=== PATIENT | male | born 1995 | race African-American/Black ===

== ENCOUNTER 2021-05-13 10:38 | Emergency (ER) | payer MEDICAID, OTHER ==
--- NOTE | 2021-05-13 10:46 | EDM.PDOC ---
ED HPI GENERAL MEDICAL PROBLEM - General Chief Complaint: General Stated Complaint: BODY ACHES, COLD CHILLS & SWEATS,DIZZY, FATIGUE Time Seen by Provider: 05/13/21 10:41 Source of Information: Reports: Patient History Limitations: Reports: No Limitations - History of Present Illness INITIAL COMMENTS - FREE TEXT/NARRATIVE: 26-year-old male no past medical history presents for feeling unwell for the last 4 days. Patient notes headache, back pain, body aches, chills, night sweats, subjective fevers, nausea, diarrhea. He denies any sore throat, cough, loss of taste and smell. He has mild abdominal cramping pain. He denies any dysuria or hematuria. He has not had a COVID-19 vaccination. back Pain Score (Numeric/FACES): 7 - Related Data Allergies Allergy/AdvReac Type Severity Reaction Status Date / Time No Known Allergies Allergy Verified 05/13/21 10:52 Home Meds: Home Meds . [No Known Home Meds] 05/13/21 [History] ED ROS GENERAL - Review of Systems Review Of Systems: Comprehensive ROS is negative, except as noted in HPI. ED EXAM, GENERAL - Physical Exam Exam: See Below Exam Limited By: No Limitations General Appearance: Alert, WD/WN, No Apparent Distress Ears: Hearing Grossly Normal Throat/Mouth: Normal Inspection, Normal Lips, Normal Gums, Normal Oropharynx, Normal Voice, No Airway Compromise Head: Atraumatic, Normocephalic Neck: Normal Inspection, Supple, Full Range of Motion Respiratory/Chest: No Respiratory Distress, Lungs Clear, Normal Breath Sounds, No Accessory Muscle Use Cardiovascular: Normal Peripheral Pulses, Regular Rate, Rhythm GI/Abdominal: Soft, Non-Tender Extremities: Normal Inspection Neurological: Alert, Normal Cognition, Normal Gait Psychiatric: Normal Affect, Normal Mood Skin Exam: Warm, Dry, Intact, Normal Color Course - Vital Signs Last Recorded V/S: Last Vital Signs Temp 96.1 F L 05/13/21 10:52 Pulse 88 05/13/21 10:52 Resp 20 05/13/21 10:52 BP 155/93 H 05/13/21 10:52 Pulse Ox 97 05/13/21 10:52 - Orders/Labs/Meds Orders: Active Orders 24 hr Category Date Time Status Sodium Chloride 0.9% [Saline Flush] Med 05/13/21 11:10 Active 10 ml FLUSH ASDIRECTED PRN Sodium Chloride 0.9% [Saline Flush] Med 05/13/21 11:10 Active 2.5 ml FLUSH ASDIRECTED PRN Saline Lock Insert [OM.PC] Stat Oth 05/13/21 11:10 Ordered Medication Orders Sodium Chloride (Sodium Chloride 0.9% 10 Ml Syringe) 10 ml FLUSH ASDIRECTED PRN PRN Reason: Keep Vein Open Last Admin: 05/13/21 11:38 Dose: 10 ml Documented by: CANDIS Sodium Chloride (Sodium Chloride 0.9% 2.5 Ml Syringe) 2.5 ml FLUSH ASDIRECTED PRN PRN Reason: Keep Vein Open Last Admin: 05/13/21 11:39 Dose: 2.5 ml Documented by: CANDIS Labs: Laboratory Tests 05/13/21 05/13/21 05/13/21 Range/Units 11:45 11:45 11:55 WBC 3.21 L (4.0-11.0) K/uL RBC 4.94 (4.50-5.90) M/uL Hgb 15.8 (13.0-17.0) g/dL Hct 45.6 (38.0-50.0) % MCV 92.3 (80.0-98.0) fL MCH 32.0 (27.0-32.0) pg MCHC 34.6 (31.0-37.0) g/dL RDW Std Deviation 44.6 (28.0-62.0) fl RDW Coeff of Reema 13 (11.0-15.0) % Plt Count 234 (150-400) K/uL MPV 10.30 (7.40-12.00) fL Neut % (Auto) 55.5 (48.0-80.0) % Lymph % (Auto) 34.9 (16.0-40.0) % [place] % (Auto) 9.0 (0.0-15.0) % Eos % (Auto) 0.3 (0.0-7.0) % Baso % (Auto) 0.3 (0.0-1.5) % Neut # (Auto) 1.8 (1.4-5.7) K/uL Lymph # (Auto) 1.1 (0.6-2.4) K/uL [place] # (Auto) 0.3 (0.0-0.8) K/uL Eos # (Auto) 0.0 (0.0-0.7) K/uL Baso # (Auto) 0.0 (0.0-0.1) K/uL Nucleated RBC % 0.0 /100WBC Nucleated RBCs # 0 K/uL Sodium 135 L (136-148) mmol/L Potassium 3.7 (3.5-5.1) mmol/L Chloride 102 (98-107) mmol/L Carbon Dioxide 24.9 (21.0-32.0) mmol/L BUN 13 (7.0-18.0) mg/dL Creatinine 1.3 (0.8-1.3) mg/dL Est Cr Clr Drug Dosing 100.12 mL/min Estimated GFR (MDRD) > 60.0 ml/min Glucose 119 H (74-106) mg/dL Calcium 8.5 (8.5-10.1) mg/dL Total Bilirubin 0.3 (0.2-1.0) mg/dL AST 21 (15-37) IU/L ALT 24 (14-63) IU/L Alkaline Phosphatase 48 (46-116) U/L C-Reactive Protein 2.90 H (0.00-0.90) mg/dL Total Protein 7.8 (6.4-8.2) g/dL Albumin 3.8 (3.4-5.0) g/dL Globulin 4.0 (2.6-4.0) g/dL Albumin/Globulin Ratio 0.9 (0.9-1.6) SARS-CoV-2 RNA (ALYSIA) POSITIVE H (NEGATIVE) Meds: Medications Generic Name Dose Route Start Last Admin Trade Name Freq PRN Reason Stop Dose Admin Sodium Chloride 10 ml 05/13/21 11:10 05/13/21 11:38 Sodium Chloride 0.9% 10 Ml Syringe FLUSH 10 ml ASDIRECTED PRN Administration Keep Vein Open Sodium Chloride 2.5 ml 05/13/21 11:10 05/13/21 11:39 Sodium Chloride 0.9% 2.5 Ml Syringe FLUSH 2.5 ml ASDIRECTED PRN Administration Keep Vein Open Discontinued Medications Generic Name Dose Route Start Last Admin Trade Name Freq PRN Reason Stop Dose Admin Acetaminophen 1,000 mg 05/13/21 11:10 05/13/21 11:39 Acetaminophen 500 Mg Tab PO 05/13/21 11:11 1,000 mg ONETIME ONE Administration Diphenhydramine HCl 25 mg 05/13/21 11:10 05/13/21 11:38 Diphenhydramine 50 Mg/Ml Sdv IVPUSH 05/13/21 11:11 25 mg ONETIME ONE Administration Sodium Chloride 1,000 mls @ 999 mls/hr 05/13/21 11:10 05/13/21 11:38 Normal Saline IV 05/13/21 12:10 999 mls/hr .Bolus ONE Administration Ketorolac Tromethamine 15 mg 05/13/21 11:10 05/13/21 11:38 Ketorolac 15 Mg/Ml Sdv IVPUSH 05/13/21 11:11 15 mg STAT STA Administration Metoclopramide HCl 10 mg 05/13/21 11:10 05/13/21 11:38 Metoclopramide 10 Mg/2 Ml Sdv IVPUSH 05/13/21 11:11 10 mg ONETIME ONE Administration - Re-Assessments/Exams Free Text/Narrative Re-Assessment/Exam: 05/13/21 11:12 Patients presents with several nonspecific symptoms suggestive of possible viral illness. Will get basic labs. Will give IV fluid bolus and symptomatic relief medications while working up. 05/13/21 12:59 Patient's labs are grossly unremarkable. His COVID-19 test is positive. Will discharge patient with Covid return precautions. Departure - Departure Time of Disposition: 12:59 Disposition: Home, Self-Care 01 Condition: Good Clinical Impression: COVID-19 - Discharge Information Instructions: COVID-19 Frequently Asked Questions, COVID-19 Vaccine Information Referrals: PCP,None [Primary Care Provider] - Forms: ED Department Discharge Additional Instructions: Your COVID-19 test is positive. COVID-19 symptoms typically last for 10-14 days in otherwise young, healthy people. If you develop difficulty breathing or chest pain, you should come back to the Emergency Department for reassessment. You need to self-isolate until cleared by the state (they will call you). Do not go out into public!! This disease is VERY contagious and you will get other people sick. I have seen many, many older people and some young people from COVID, and you should not want to be responsible for the illness or of anyone. When you are cleared by the state, you should consider getting a COVID-19 vaccination as this is the best way to protect yourself and others from COVID infection. Information is provided below. The best way to protect yourself and others from COVID-19 is to take one of the three safe and effective vaccines that have been proven to substantially reduce risk of both infection and severe illness. [facility] is currently offering COVID vaccinations for anyone age 18 and older. To schedule an appointment call [phone]. Or, to be contacted by our clinics about scheduling your vaccine online, please go to [email or web address] The following information is given to patients seen in the emergency department who are being discharged to home. This information is to outline your options for follow-up care. We provide all patients seen in our emergency department with a follow-up referral. The need for follow-up, as well as the timing and circumstances, are variable depending upon the specifics of your emergency department visit. If you don't have a primary care physician on staff, we will provide you with a referral. We always advise you to contact your personal physician following an emergency department visit to inform them of the circumstance of the visit and for follow-up with them and/or the need for any referrals to a consulting speci alist. The emergency department will also refer you to a specialist when appropriate. This referral assures that you have the opportunity for follow-up care with a specialist. All of these measure are taken in an effort to provide you with optimal care, which includes your follow-up. Under all circumstances we always encourage you to contact your private physician who remains a resource for coordinating your care. When calling for follow-up care, please make the office aware that this follow-up is from your recent emergency room visit. If for any reason you are refused follow-up, please contact the [facility] Emergency Department at and asked to speak to the emergency department charge nurse. Please follow up with your primary care physician. If you do not have a primary care physician, see below: [facility] [address] [place], [place] [id number] [facility] [address] [place] [address] Sepsis Event Note (ED) - Focused Exam Vital Signs: Vital Signs Temp Pulse Resp BP Pulse Ox 05/13/21 10:52 96.1 F L 88 20 155/93 H 97 - My Orders Last 24 Hours: My Active Orders 05/13/21 11:10 Sodium Chloride 0.9% [Saline Flush] 10 ml FLUSH ASDIRECTED PRN Sodium Chloride 0.9% [Saline Flush] 2.5 ml FLUSH ASDIRECTED PRN Saline Lock Insert [OM.PC] Stat - Assessment/Plan Last 24 Hours: My Active Orders 05/13/21 11:10 Sodium Chloride 0.9% [Saline Flush] 10 ml FLUSH ASDIRECTED PRN Sodium Chloride 0.9% [Saline Flush] 2.5 ml FLUSH ASDIRECTED PRN Saline Lock Insert [OM.PC] Stat
[2021-05-13] MEDS ORDERED: Sodium Chloride 0.9% 1,000 ML IV ONE (11:10)
[2021-05-13] MEDS ORDERED: Sodium Chloride 0.9% 10 ML Syringe FLUSH PRN (11:10)
[2021-05-13] MEDS ORDERED: diphenhydrAMINE 50 MG/ML SDV IVPUSH ONE (11:10)
[2021-05-13] MEDS ORDERED: Metoclopramide 10 MG/2 ML SDV IVPUSH ONE (11:10)
[2021-05-13] MEDS ORDERED: Acetaminophen 500 MG Tab PO ONE (11:10)
[2021-05-13] MEDS ORDERED: Sodium Chloride 0.9% 2.5 ML Syringe FLUSH PRN (11:10)
[2021-05-13] MEDS ORDERED: Ketorolac 15 MG/ML SDV IVPUSH STA (11:10)
[2021-05-13 12:18] LABS: BLOOD UREA NITROGEN,BUN 13 mg/dL (7.0-18.0); CARBON DIOXIDE,CO2 24.9 mmol/L (21.0-32.0); CHLORIDE,CL 102 mmol/L (98-107); GLUCOSE RANDOM 119 mg/dL (74-106); POTASSIUM,K 3.7 mmol/L (3.5-5.1); SODIUM,NA 135 mmol/L (136-148)
== END 2021-05-13 13:18 | disposition home or self-care (01) ==
LOC: MW.ED 10:38
DX: U07.1 COVID-19 (principal)
CPT/HCPCS: 36415; 80053; 85025; 86140; 87635; 96374; 96375; 99284; A9270; J1200; J1885; J2765; J7030; U0002